=== PATIENT | male | born 1945 | race Caucasian/White ===

== ENCOUNTER → 2022-01-14 | Day surgery (SDC) | payer MEDICARE, OTHER ==
[~2022-01-14] MED LIST: AMLODIPINE BESYL5 MG PO; ASPIRIN EC81 MG PO; CO Q-10100 MG PO; CRESTOR10 MG PO; DEXAMETHASONE SOD PHOS INJ 4 MG/ML SDV IV ONE; KETOROLAC TROMETHAMINE 30 MG/ML VIAL IV ONE; LEVOTHYROXINE PO; LIDOCAINE HCL 2% LOCAL INJ 5 ML SDV VIAL INJ ONE; OFLOXACIN 0.3% (OTIC SOL) 5 ML BTL ONE; ONDANSETRON HCL INJ 2MG/ML 2ML 2 MG/ML VIAL IV ONE; POVIDONE IODINE 0.05% 0.05 % ML PO ONE; PROPOFOL IV EMULSION 10 MG/ML 20 ML VIAL IV ONE; SEVOFLURANE INHAL SOLN 250 ML PEN BTL INH ONE
[2022-01-14 09:05] VITALS: BP 146/90
== END | disposition home or self-care (01) ==
LOC: OR 05:59
PROVIDERS: ATTEND Otolaryngology Otolaryngology/Facial Plastic Surgery
DX: H65.23 Chronic serous otitis media, bilateral (principal); H90.3 Sensorineural hearing loss, bilateral; E03.9 Hypothyroidism, unspecified; F03.90 Unspecified dementia, unspecified severity, without behavioral disturbance, psychotic disturbance, mood disturbance, and anxiety; I10 Essential (primary) hypertension; E78.5 Hyperlipidemia, unspecified; E66.9 Obesity, unspecified; Z68.35 Body mass index [BMI] 35.0-35.9, adult; Z86.73 Personal history of transient ischemic attack (TIA), and cerebral infarction without residual deficits
CPT/HCPCS: 69436; 71046; 93005; J1100; J1885; J2001; J2405; J2704